=== PATIENT | female | born 1995 | race Caucasian/White ===

== ENCOUNTER 2021-04-15 14:56 | Inpatient (IN) | payer OTHER ==
[2021-04-15] MEDS ORDERED: Propofol 200 MG/20 ML SDV ONE (15:17)
[2021-04-15] MEDS ORDERED: Succinylcholine 200 MG/10 ML MDV ONE (15:17)
[2021-04-15] MEDS ORDERED: Dexamethasone 4 MG/ML SDV ONE (15:17)
[2021-04-15] MEDS ORDERED: Rocuronium 50 MG/5 ML Vial ONE (15:17)
[2021-04-15] MEDS ORDERED: Glycopyrrolate 0.2 MG/ML 5 ML MDV ONE (15:17)
[2021-04-15] MEDS ORDERED: Ondansetron 4 MG/2 ML SDV ONE (15:17)
[2021-04-15] MEDS ORDERED: Neostigmine Methylsulfate 1 MG/ML 5 ML Syringe ONE (15:17)
[2021-04-15] MEDS ORDERED: fentaNYL 250 MCG/5 ML SDV ONE ×2 (15:18→16:39)
[2021-04-15] MEDS ORDERED: Bupivacaine 0.5%/EPINEPHrine 1:200,000 50 ML MDV ONE (15:51)
[2021-04-15] MEDS ORDERED: fentaNYL 100 MCG/2 ML SDV IVPUSH ONE (16:05)
--- NOTE | 2021-04-15 16:12 | EDM.PDOC ---
ED HPI GENERAL MEDICAL PROBLEM - General Chief Complaint: Abdominal Pain Stated Complaint: APPENDIX REMOVAL Time Seen by Provider: 04/15/21 15:50 Source of Information: Reports: Patient, Family History Limitations: Reports: No Limitations - History of Present Illness INITIAL COMMENTS - FREE TEXT/NARRATIVE: 25-year-old female's been having abdominal pain waxing and waning for the past 2 weeks, was assessed initially over 1 week ago and blood work and exam was reassuring. It seemed to get a little better for a few days but over the past 2 to 3 days has been much worse, especially the last 12 hours. She was evaluated in [facility], and found to have appendicitis and was sent to our hospital for surgery. She is still stable but needs clearance through the emergency room before admission. She is fully vaccinated for Covid. She has not received anything for pain Onset: Gradual Duration: Week(s): (2 weeks) Location: Reports: Abdomen (Right lower quadrant) Associated Symptoms: Reports: No Other Symptoms Right Lower Abdomen Pain Score (Numeric/FACES): 7 - Related Data Allergies Allergy/AdvReac Type Severity Reaction Status Date / Time diphenhydramine Allergy Anxiety Verified 04/15/21 16:06 [From Benadryl] Home Meds: Home Meds FLUoxetine [PROzac] 20 mg PO DAILY 04/15/21 [History] ED ROS GENERAL - Review of Systems Review Of Systems: See Below Constitutional: Reports: Chills, Malaise. Denies: Fever HEENT: Reports: No Symptoms Respiratory: Reports: No Symptoms Cardiovascular: Reports: No Symptoms GI/Abdominal: Reports: Abdominal Pain. Denies: Nausea, Vomiting Skin: Reports: No Symptoms Neurological: Reports: No Symptoms ED EXAM, GI/ABD - Physical Exam Exam: See Below Exam Limited By: No Limitations General Appearance: Alert, No Apparent Distress (Looks uncomfortable but no distress) Eyes: Bilateral: Normal Appearance (No jaundice) Respiratory/Chest: No Respiratory Distress GI/Abdominal Exam: Soft, Tender (Patient is tender and has guarding and rebound tenderness in the right lower quadrant) Neurological: Alert, Oriented Psychiatric: Normal Affect, Normal Mood Skin Exam: Warm, Dry Course - Vital Signs Last Recorded V/S: Last Vital Signs Temp 97.3 F 04/15/21 17:50 Pulse 75 04/15/21 17:50 Resp 14 04/15/21 17:50 BP 113/60 04/15/21 17:50 Pulse Ox 99 04/15/21 17:50 - Orders/Labs/Meds Orders: Active Orders 24 hr Category Date Time Status Ambulate [RC] QID Care 04/15/21 17:22 Active Dorsiflex/Plantar flex x 10 [RC] Q4HR Care 04/15/21 17:22 Active Head of Bed Elevation [RC] ASDIRECTED Care 04/15/21 17:22 Active Notify Provider Vital Signs [RC] ASDIRECTED Care 04/15/21 17:22 Active Pneumonia Education [RC] UPON Care 04/15/21 17:22 Active RT Incentive Spirometry [RC] Q1HWA Care 04/15/21 17:22 Active Ready for Discharge [RC] PER UNIT ROUTINE Care 04/15/21 17:22 Active Turn, Cough, Deep Breathe [RC] .PRN Care 04/15/21 17:22 Active Up to Chair [RC] ASDIRECTED Care 04/15/21 17:22 Active Advance Diet Instructions [DIET] Diet 04/15/21 Breakfast Active Advance Diet Instructions [DIET] Diet 04/15/21 Dinner Active BASIC METABOLIC PANEL,BMP [CHEM] AM Lab 04/16/21 05:15 Ordered CBC WITH AUTO DIFF [HEME] AM Lab 04/16/21 05:15 Ordered Acetaminophen/HYDROcodone [Warren 325-5 MG] Med 04/15/21 17:22 Active 1 tab PO Q4H PRN Acetaminophen/HYDROcodone [Warren 325-5 MG] Med 04/15/21 17:28 Active 2 tab PO Q4H PRN Benzocaine/Cetylpyrd/Menthol [Cepacol Sore Throat] Med 04/15/21 17:22 Active 1 lozenge MUCMEM Q4H PRN Docusate Sodium [Colace] Med 04/15/21 17:22 Active 100 mg PO BID PRN Piperacillin/Tazobactam/Dext [Zosyn in Dextrose Iso- Med 04/15/21 22:00 Active Osmotic 3.375 GM/50 ML] 3.375 gm Premix Bag 1 bag IV Q8H Sodium Chloride 0.9% [Normal Saline] 1,000 ml Med 04/15/21 16:15 Active IV ASDIRECTED Zolpidem [Ambien] Med 04/15/21 17:22 Active 5 mg PO BEDTIME PRN hydrOXYzine HCL [Vistaril] Med 04/15/21 17:22 Active 100 mg IM Q4H PRN Abdominal Binder [OM.PC] Routine Oth 04/15/21 17:22 Ordered Convert IV to Saline Lock [OM.PC] Routine Oth 04/15/21 17:22 Ordered Procedure Education [OM.PC] Routine Oth 04/15/21 17:22 Ordered Sequential Compression Device [OM.PC] Routine Oth 04/15/21 17:22 Ordered Resuscitation Status Routine Resus Stat 04/15/21 17:22 Ordered Medication Orders Hydrocodone Bitart/Acetaminophen (Acetaminophen/Hydrocodone 325-5 Mg Tab) 1 tab PO Q4H PRN PRN Reason: Pain (moderate 4-6) Hydrocodone Bitart/Acetaminophen (Acetaminophen/Hydrocodone 325-5 Mg Tab) 2 tab PO Q4H PRN PRN Reason: Pain (SEVERE 7+) Benzocaine/Menthol (Benzocaine/Cetylpyridinium/Menthol Lozenge) 1 lozenge MUCMEM Q4H PRN PRN Reason: Sore Throat Docusate Sodium (Docusate Sodium 100 Mg Cap) 100 mg PO BID PRN PRN Reason: Constipation Hydroxyzine HCl (Hydroxyzine Hcl 100 Mg/2 Ml Sdv) 100 mg IM Q4H PRN PRN Reason: Breakthrough Pain Sodium Chloride (Normal Saline) 1,000 mls @ 500 mls/hr IV ASDIRECTED [facility] Last Admin: 04/15/21 16:00 Dose: 500 mls/hr Documented by: BORA Piperacillin/Tazobactam/ (Dextrose 3.375 gm/ Premix) 50 mls @ 100 mls/hr IV Q8H [facility] Zolpidem Tartrate (Zolpidem 5 Mg Tab) 5 mg PO BEDTIME PRN PRN Reason: Sleep Labs: Laboratory Tests 04/15/21 Range/Units 15:27 SARS CoV-2 RNA Rapid NELSON Negative Meds: Medications Generic Name Dose Route Start Last Admin Trade Name Freq PRN Reason Stop Dose Admin Hydrocodone Bitart/Acetaminophen 1 tab 04/15/21 17:22 Acetaminophen/Hydrocodone 325-5 Mg Tab PO Q4H PRN Pain (moderate 4-6) Hydrocodone Bitart/Acetaminophen 2 tab 04/15/21 17:28 Acetaminophen/Hydrocodone 325-5 Mg Tab PO Q4H PRN Pain (SEVERE 7+) Benzocaine/Menthol 1 lozenge 04/15/21 17:22 Benzocaine/Cetylpyridinium/Menthol Lozenge MUCMEM Q4H PRN Sore Throat Docusate Sodium 100 mg 04/15/21 17:22 Docusate Sodium 100 Mg Cap PO BID PRN Constipation Hydroxyzine HCl 100 mg 04/15/21 17:22 Hydroxyzine Hcl 100 Mg/2 Ml Sdv IM Q4H PRN Breakthrough Pain Sodium Chloride 1,000 mls @ 500 mls/hr 04/15/21 16:15 04/15/21 16:00 Normal Saline IV 500 mls/hr ASDIRECTED EVANGELISTA Administration Piperacillin/Tazobactam/ 50 mls @ 100 mls/hr 04/15/21 22:00 Dextrose 3.375 gm/ Premix IV Q8H EVANGELISTA Zolpidem Tartrate 5 mg 04/15/21 17:22 Zolpidem 5 Mg Tab PO BEDTIME PRN Sleep Discontinued Medications Generic Name Dose Route Start Last Admin Trade Name Freq PRN Reason Stop Dose Admin Bupivacaine HCl/Epinephrine Bitart Confirm 04/15/21 15:51 04/15/21 17:10 Bupivacaine 0.5%/Epinephrine 1:200,000 50 Ml Mdv Administered 04/15/21 15:52 30 ml Dose Administration 50 ml .ROUTE .STK-MED ONE Ropivacaine 32 ml/ 0 ml 04/15/21 17:00 04/15/21 16:57 Dexamethasone 8 mg/ NERVRT 80 syringe Epinephrine HCl 0.4 mg/ Sodium ASDIRECTED EVANGELISTA Administration Chloride 45.6 ml Dexamethasone Confirm 04/15/21 15:17 Dexamethasone 4 Mg/Ml Sdv Administered 04/15/21 15:18 Dose 4 mg .ROUTE .STK-MED ONE Fentanyl Confirm 04/15/21 15:18 Fentanyl 250 Mcg/5 Ml Sdv Administered 04/15/21 15:19 Dose 250 mcg .ROUTE .STK-MED ONE Fentanyl 50 mcg 04/15/21 16:05 04/15/21 16:21 Fentanyl 100 Mcg/2 Ml Sdv IVPUSH 04/15/21 16:06 50 mcg ONETIME ONE Administration Fentanyl Confirm 04/15/21 16:39 Fentanyl 250 Mcg/5 Ml Sdv Administered 04/15/21 16:40 Dose 250 mcg .ROUTE .STK-MED ONE Glycopyrrolate Confirm 04/15/21 15:17 Glycopyrrolate 0.2 Mg/Ml 5 Ml Mdv Administered 04/15/21 15:18 Dose 1 mg .ROUTE .STK-MED ONE Piperacillin/Tazobactam/ 50 mls @ 100 mls/hr 04/15/21 17:00 04/15/21 16:55 Dextrose 3.375 gm/ Premix IV 04/15/21 17:29 100 mls/hr ONCALL ONE Administration Lactated Ringer's Confirm 04/15/21 16:57 Ringers, Lactated Administered 04/15/21 16:58 Dose 1,000 mls @ as directed .ROUTE .STK-MED ONE Neostigmine Methylsulfate Confirm 04/15/21 15:17 Neostigmine Methylsulfate 1 Mg/Ml 5 Ml Syringe Administered 04/15/21 15:18 Dose 5 mg .ROUTE .STK-MED ONE Ondansetron HCl Confirm 04/15/21 15:17 Ondansetron 4 Mg/2 Ml Sdv Administered 04/15/21 15:18 Dose 4 mg .ROUTE .STK-MED ONE Propofol Confirm 04/15/21 15:17 Propofol 200 Mg/20 Ml Sdv Administered 04/15/21 15:18 Dose 200 mg .ROUTE .STK-MED ONE Rocuronium [place] Confirm 04/15/21 15:17 Rocuronium 50 Mg/5 Ml Vial Administered 04/15/21 15:18 Dose 50 mg .ROUTE .STK-MED ONE Succinylcholine Chloride Confirm 04/15/21 15:17 Succinylcholine 200 Mg/10 Ml Mdv Administered 04/15/21 15:18 Dose 200 mg .ROUTE .STK-MED ONE - Re-Assessments/Exams Free Text/Narrative Re-Assessment/Exam: 04/15/21 16:10 An IV was started, patient will be hydrated with normal saline and given 50 mcg of fentanyl IV. She is being prepared for surgery. She will be admitted to Dr. Marin's service. Departure - Departure Time of Disposition: 17:01 Disposition: Admitted As Inpatient 65 Clinical Impression: Abdominal pain Qualifiers: Abdominal location: right lower quadrant Qualified Code(s): R10.31 - Right lower quadrant pain Appendicitis Qualifiers: Appendicitis type: acute appendicitis Acute appendicitis type: with localized peritonitis Appendicitis gangrene presence: unspecified whether gangrene present Appendicitis perforation presence: without perforation Appendicitis abscess presence: without abscess Qualified Code(s): K35.30 - Acute appendicitis with localized peritonitis, without perforation or gangrene - Discharge Information Sepsis Event Note (ED) - Focused Exam Vital Signs: Vital Signs Temp Pulse Resp BP Pulse Ox 04/15/21 17:50 97.3 F 75 14 113/60 99 04/15/21 17:45 77 17 115/66 80 L 04/15/21 17:35 82 18 120/65 99 04/15/21 17:30 90 12 120/65 100 04/15/21 17:25 99 15 117/71 100 04/15/21 17:20 97.5 F 102 H 13 121/61 98 04/15/21 16:12 97.8 F 64 16 108/57 L 100 - My Orders Last 24 Hours: My Active Orders 04/15/21 16:15 Sodium Chloride 0.9% [Normal Saline] 1,000 ml IV ASDIRECTED - Assessment/Plan Last 24 Hours: My Active Orders 04/15/21 16:15 Sodium Chloride 0.9% [Normal Saline] 1,000 ml IV ASDIRECTED
[2021-04-15] MEDS ORDERED: Sodium Chloride 0.9% 1,000 ML IV SCH (16:15)
[2021-04-15] MEDS ORDERED: Lactated Ringers 1,000 ML ONE (16:57)
[2021-04-15] MEDS ORDERED: Ropivacaine 32 ML, dexAMETHasone 8 MG, EPINEPHrine 0.4 MG, Sodium Chloride 0.9% 45.6 ML NERVRT SCH ×4 (17:00)
[2021-04-15] MEDS ORDERED: Piperacillin/Tazobactam/Dext 3.375 GM in Premix Bag 1 BAG IV ONE (17:00)
[2021-04-15] MEDS ORDERED: hydrOXYzine HCL 100 MG/2 ML SDV IM PRN (17:22)
[2021-04-15] MEDS ORDERED: Zolpidem 5 MG Tab PO PRN (17:22)
[2021-04-15] MEDS ORDERED: Docusate Sodium 100 MG Cap PO PRN (17:22)
[2021-04-15] MEDS: Benzocaine/Cetylpyridinium/Menthol Lozenge MUCMEM PRN (18:30)
[2021-04-15] MEDS: Acetaminophen/HYDROcodone 325-5 MG Tab PO PRN (19:33)
[2021-04-15] MEDS: Piperacillin/Tazobactam/Dext 3.375 GM in Premix Bag 1 BAG IV SCH (21:31)
[2021-04-16] MEDS: Acetaminophen/HYDROcodone 325-5 MG Tab PO PRN ×4 (00:38→19:21)
[2021-04-16] MEDS: Piperacillin/Tazobactam/Dext 3.375 GM in Premix Bag 1 BAG IV SCH ×3 (05:00→21:41)
[2021-04-16] MEDS: Benzocaine/Cetylpyridinium/Menthol Lozenge MUCMEM PRN (13:18)
[2021-04-16] MEDS ORDERED: Ibuprofen 600 MG Tab PO PRN (15:47)
[2021-04-17] MEDS: Acetaminophen/HYDROcodone 325-5 MG Tab PO PRN (03:04)
[2021-04-17] MEDS: Piperacillin/Tazobactam/Dext 3.375 GM in Premix Bag 1 BAG IV SCH (05:48)
--- NOTE | 2021-04-17 11:49 | PN ---
DATE OF SERVICE: 04/16/2021 SUBJECTIVE: The patient is doing well. Pain is well controlled. No nausea, vomiting, shortness of breath, or chest pain. OBJECTIVE: VITAL SIGNS: Stable. CARDIOVASCULAR: Regular rhythm and rate. RESPIRATORY: Lungs are clear to auscultation bilaterally. SKIN: Incision healing well. ASSESSMENT: Status post appendicitis. PLAN: Continue to advance diet. Continue antibiotics until probably tomorrow a.mRanjana Marin MD /[id number]
--- NOTE | 2021-04-17 12:10 | PN ---
DATE OF SERVICE: 04/17/2021 SUBJECTIVE: Patient is doing well today. Pain is well controlled. No nausea, vomiting, shortness of breath, or chest pain. OBJECTIVE: VITAL SIGNS: Stable. She is afebrile. Incision is healing well. ASSESSMENT: Status post laparoscopic appendectomy. PLAN: The patient will be discharged today. Please see discharge summary for further details. Shaun Marin MD /[id number]
--- NOTE | 2021-04-18 10:52 | DISCH ---
DISCHARGE DIAGNOSIS: Status post appendicitis. SUMMARY OF HOSPITAL COURSE: Pleasant 25-year-old female, underwent an uneventful laparoscopic appendectomy due to CT diagnosed appendicitis. The patient did well prior to discharge. Her pain is well controlled. She had no nausea, vomiting, shortness of breath, or chest pain. GI activity is good. No signs of infection or issues. The patient prefers to go home. FOLLOWUP: With Surgery in 7 to 14 days. ACTIVITY: No lifting greater than 30 pounds for 30 days. DISCHARGE MEDICATIONS: Please see MAR, but include Nixa for pain. /[id number]
--- NOTE | 2021-05-05 13:27 | OR ---
DATE OF PROCEDURE: SURGEON: Shaun Marin MD PROCEDURES: 1. Bilateral transversus abdominis plane blocks. 2. Bilateral rectus sheath blocks. COMPLICATION: None. WATER SYSTEMS DESIGNER: None. RISKS: Risks, benefits, alternatives, and limitations including but not limited to infection, bleeding, and injury to abdominal structures were explained to the patient and they wished to proceed. PROCEDURE IN DETAIL: The patient was placed in supine position. The right transversus plane was identified first. This was injected with approximately 20% solution. This was repeated on the left side. Bilateral rectus sheath blocks were then also injected under direct visualization. 20% solution was used for each of these respectively. At no point was the peritoneum perforated, and at no point was the needle blindly advanced. The patient tolerated the procedure well. Shaun Marin MD /[id number]
--- NOTE | 2021-05-05 16:16 | OR ---
DATE OF PROCEDURE: 04/15/2021 SURGEON: Shaun Marin MD PROCEDURE: Laparoscopic appendectomy. COMPLICATIONS: None. HOUSE CALLS NURSE: None. PREPROCEDURE DIAGNOSIS: Appendicitis. POSTPROCEDURE DIAGNOSIS: Appendicitis. RISKS: Risks, benefits, alternatives, and limitations including but not limited to infection, bleeding, perforation, injury to abdominal structures and other risks not listed here were explained to the patient and they wished to proceed. PROCEDURE IN DETAIL: The patient was placed in supine position. A supraumbilical curvilinear incision was made. A Veress needle was used to enter the abdomen without abnormality. A drop test was performed without abnormality. Two additional 5 mm ports were entered under direct visualization. The appendix was readily identified. This was consistent with appendicitis, nonruptured. This was subsequently elevated and transected using a peterson load stapler. This was delivered through the umbilical port without difficulty. The bag did not rupture. The staple line was inspected for bleeding, none was noted. This was irrigated with 1 L of irrigation. Liquid was removed. The air was removed. The wounds were closed with 3-0 Vicryl and 4=0 Vicryl interrupted and running fashion. The patient tolerated procedure well. Shaun Marin MD /[id number]
== END 2021-04-17 08:45 | disposition home or self-care (01) | DRG 343 ==
LOC: JP.ED 14:56 → JP.SDS 16:03 → JP.MS 17:56
PROVIDERS: ADMIT Surgery; ATTEND Surgery
PROC: 0DTJ4ZZ Resection of Appendix, Percutaneous Endoscopic Approach (ICD-10-PCS; principal; 2021-04-15)
DX: K37 Unspecified appendicitis (principal); Z88.8 Allergy status to other drugs, medicaments and biological substances; Z79.899 Other long term (current) drug therapy
CPT/HCPCS: 36415; 80048; 85025; 88304; 96374; 96375; 99284; 99284-25; A9270-GY; J0171; J0330; J1100; J2405; J2543; J2704; J2710; J2795; J3010; J3490; J7030; J7120; U0002